=== PATIENT | male | born 1990 | race Caucasian/White ===

== ENCOUNTER 2018-03-15 15:31 | Emergency (ER) | payer BC, OTHER ==
[2018-03-15] MEDS ORDERED: EPINEPHrine 1 MG/ML SDV IM ONE (15:42)
[2018-03-15] MEDS ORDERED: diphenhydrAMINE 50 MG/ML SDV IM ONE (15:43)
[2018-03-15] MEDS ORDERED: methylPREDNISolone Sodium Succinate 125 MG/2 ML SDV IM ONE (15:43)
[2018-03-15] MEDS ORDERED: LORazepam 1 MG Tab PO ONE (15:43)
--- NOTE | 2018-03-15 16:15 | EDM.PDOCBH ---
ED HPI GENERAL MEDICAL PROBLEM - General Chief Complaint: Behavioral/Psych Stated Complaint: anxiety Time Seen by Provider: 03/15/18 15:39 Source of Information: Reports: Patient, Provider (sent over from the [facility] by Kaelyn Dick) History Limitations: Reports: No Limitations - History of Present Illness INITIAL COMMENTS - FREE TEXT/NARRATIVE: Patient was brought over here from the clinic with complaints of a lump in his neck after a sebacious cyst removal at [address]. He states that this happened when being injected with lidocaine. He has a history of anxiety and is Onset: Today, Sudden Duration: Getting Worse Location: Reports: Neck Quality: Reports: Pressure Severity: Moderate Improves with: Reports: Medication Associated Symptoms: Reports: Shortness of Breath - Related Data Allergies Allergy/AdvReac Type Severity Reaction Status Date / Time No Known Allergies Allergy Verified 03/15/18 15:46 Home Meds: Home Meds PARoxetine [Paxil] 20 mg PO DAILY 03/15/18 [History] ED ROS GENERAL - Review of Systems Review Of Systems: See Below Constitutional: Reports: No Symptoms HEENT: Reports: Other (feels like throat is closing) Respiratory: Reports: Shortness of Breath Cardiovascular: Reports: No Symptoms Endocrine: Reports: No Symptoms GI/Abdominal: Reports: No Symptoms : Reports: No Symptoms Musculoskeletal: Reports: No Symptoms Skin: Reports: No Symptoms Neurological: Reports: No Symptoms Psychiatric: Reports: Agitation, Anxiety Hematologic/Lymphatic: Reports: No Symptoms Immunologic: Reports: No Symptoms ED EXAM, BEHAVIORAL HEALTH - Physical Exam Exam: See Below Exam Limited By: No Limitations General Appearance: Alert, WD/WN, Moderate Distress Eye Exam: Bilateral Eye: EOMI, PERRL Ears: Normal TMs Nose: Normal Inspection, Normal Mucosa, No Blood Throat/Mouth: Normal Inspection, Normal Lips, Normal Teeth, Normal Gums, Normal Oropharynx, Normal Voice, No Airway Compromise Neck: Normal Inspection, Supple, Non-Tender, Full Range of Motion, Other ( incision site to posterior neck packed with antibiotic gauze) Respiratory/Chest: No Respiratory Distress, Lungs Clear, Normal Breath Sounds, No Accessory Muscle Use, Chest Non-Tender Cardiovascular: Normal Peripheral Pulses, Regular Rate, Rhythm, No Edema, No Gallop, No JVD, No Murmur, No Rub GI/Abdominal: Normal Bowel Sounds, Soft, Non-Tender, No Organomegaly, No Distention, No Abnormal Bruit, No Mass Back Exam: Normal Inspection, Full Range of Motion, NT Extremities: Normal Inspection, Normal Range of Motion, Non-Tender, Normal Capillary Refill, No Pedal Edema Neurological: Alert, Normal Mood/Affect, CN II-XII Intact, Normal Cognition, Normal Gait, Normal Reflexes, No Motor/Sensory Deficits, Oriented x 3 Psychiatric: Alert, Normal Cognition, Oriented, Agitated Skin Exam: Warm, Dry, Intact, Normal color, No rash Departure - Departure Time of Disposition: 16:43 Disposition: Home, Self-Care 01 Condition: Good Clinical Impression: Anxiety - Discharge Information *PRESCRIPTION DRUG MONITORING PROGRAM REVIEWED*: Not Applicable *COPY OF PRESCRIPTION DRUG MONITORING REPORT IN PATIENT APPLE: Not Applicable Instructions: Panic Attack, [id number], Generalized Anxiety Disorder, Adult Forms: ED Department Discharge Additional Instructions: Follow up with your primary as needed for symptom management. You can call us at any time for additional questions or concerns. - Problem List & Annotations (1) Anxiety SNOMED Code(s): 48214441 Code(s): F41.9 - ANXIETY DISORDER, UNSPECIFIED Status: Acute Priority: Low Current Visit: Yes - Problem List Review Problem List Initiated/Reviewed/Updated: Yes - Assessment/Plan Assessment:: generalized anxiety Plan: Follow up with your primary as needed for symptom management. You can call us at any time for additional questions or concerns.
[2018-03-15] MEDS ORDERED: LORazepam 2 MG/ML SDV IM ONE (16:25)
== END 2018-03-15 16:55 | disposition home or self-care (01) ==
LOC: VM.ED 15:31
DX: F41.1 Generalized anxiety disorder (principal)
CPT/HCPCS: 96372; 99283; A9270; J0171; J1200; J2930

== ENCOUNTER 2023-05-14 21:09 | Emergency (ER) | payer OTHER ==
[2023-05-14] MEDS ORDERED: Sodium Chloride 0.9% 10 ML Syringe FLUSH PRN (21:18)
[2023-05-14] MEDS: LORazepam 1 MG Tab PO ONE (21:28)
[2023-05-14 21:37] LABS: BASOPHILS PERCENT AUTO 0.4 % (0.2-1.2); EOSINOPHILS ABSOLUTE AUTO 0.2 x10^3/uL (0.0-0.5); EOSINOPHILS PERCENT AUTO 4.2 % (0.0-4.0); HEMOGLOBIN 15.1 g/dL (14.0-18.0); IMMATURE GRAN ABSOLUTE AUTO 0.01 x10^3/uL (0.00-0.07); LYMPHOCYTES ABSOLUTE AUTO 1.7 x10^3/uL (1.0-4.8); LYMPHOCYTES PERCENT AUTO 31.7 % (25.0-50.0); MEAN CORPUSCULAR HEMOGLOBIN 28.9 pg (26.0-32.0); MEAN CORPUSCULAR HGB CONC 34.3 g/dL (32.0-36.0); MEAN CORPUSCULAR VOLUME 84.3 fL (78.0-93.0); MONOCYTES ABSOLUTE AUTO 0.3 x10^3/uL (0.0-0.8); MONOCYTES PERCENT AUTO 6.1 % (2.0-11.0); NEUTROPHILS ABSOLUTE AUTO 3.1 x10^3/uL (1.8-7.7); NEUTROPHILS PERCENT AUTO 57.4 % (50.0-80.0); PLATELET COUNT,PLT 206 x10^3/uL (130-400); RED BLOOD CELL COUNT 5.22 x10^6/uL (4.5-6.0); WHITE BLOOD CELL COUNT,WBC 5.4 x10^3/uL (4.0-10.0)
[2023-05-14] MEDS: Promethazine 6.25 MG/5 ML Liquid 10 ML UD Cup PO ONE (21:57)
[2023-05-14] MEDS: Aluminum Hydroxide/Magnesium Hydroxide/Simethicone Susp 30 ML Cup PO ONE (21:57)
[2023-05-14 21:58] LABS: PROTHROMBIN TIME 10.5 SEC (9.5-12.2); PTT,PARTIAL THROMBOPLSTIN TIME 26.7 SEC (23.6-33.6)
[2023-05-14 22:02] LABS: A/G RATIO 1.35; ALANINE AMINOTRANSFERASE,ALT 24 U/L (16-63); ALBUMIN 3.5 g/dL (3.4-5.0); ALKALINE PHOSPHATASE 79 U/L (46-116); ASPARTATE AMNIOTRANSFERASE,AST 17 U/L (15-37); BILIRUBIN TOTAL 0.4 mg/dL (0.2-1.0); BLOOD UREA NITROGEN,BUN 9 mg/dL (7-18); CALCIUM 8.4 mg/dL (8.5-10.1); CARBON DIOXIDE,CO2 28 mmol/L (21-32); CHLORIDE,CL 102 mmol/L (98-107); CREATININE 1.3 mg/dL (0.70-1.30); EST CRCL DRUG DOSING (CG) 83.45 mL/min; GLUCOSE RANDOM 192 mg/dL (70-99); MAGNESIUM 2.1 mg/dL (1.8-2.4); POTASSIUM,K 3.6 mmol/L (3.5-5.1); PROTEIN TOTAL,TP 6.1 g/dL (6.4-8.2); SODIUM,NA 138 mmol/L (136-145); TSH ULTRASENSITIVE 1.624 uIU/mL (0.358-3.74)
[2023-05-14 22:04] LABS: ANION GAP 11.6 mmol/L (5-15); C-REACTIVE PROTEIN < 0.50 mg/dL (<=0.50); ESTIMATED GFR 74 mL/min (>=60)
[2023-05-14] MEDS: Take Home: LORazepam 0.5 MG Tab, 2 Tab Pack PO ONE (22:17)
== END 2023-05-14 22:26 | disposition home or self-care (01) ==
LOC: VM.ED 21:09
DX: R07.89 Other chest pain (principal); F17.200 Nicotine dependence, unspecified, uncomplicated
CPT/HCPCS: 36415; 71045; 80053; 83735; 84443; 84484; 85025; 85610; 85730; 86140; 93005; 99285; A9270